=== PATIENT | male | born 1995 | race Asian ===

== ENCOUNTER 2020-09-03 14:40 | Emergency (ER) | payer OTHER ==
[~2020-09-03] VITALS: Ht 170.2 cm; Wt 61.2 kg
[2020-09-03 14:43] VITALS: TEMP 98.1
[2020-09-03 16:20] VITALS: BP 138/83
== END 2020-09-03 16:20 | disposition home or self-care (01) ==
LOC: ED 14:57
DX: S20.211A Contusion of right front wall of thorax, initial encounter (principal); S60.221A Contusion of right hand, initial encounter; S90.31XA Contusion of right foot, initial encounter; S09.8XXA Other specified injuries of head, initial encounter; V03.00XA Pedestrian on foot injured in collision with car, pick-up truck or van in nontraffic accident, initial encounter; Y92.410 Unspecified street and highway as the place of occurrence of the external cause
CPT/HCPCS: 96374; 99284; J1885